=== PATIENT | female | born 1980 | race Caucasian/White ===

== ENCOUNTER → 2016-08-02 | Outpatient (CLI) | payer BC ==
[~2016-08-02] MED LIST: ADVI200C5 PO; CELE20TA PO; COLA100C3 PO; PERC5TAB6 PO; PRENTAB7 PO; TRAZ50TA4 PO
== END ==
LOC: M OUTALCOH 13:30
PROVIDERS: ATTEND Psychiatry & Neurology Psychiatry
DX: Z13.9 Encounter for screening, unspecified (principal); F10.20 Alcohol dependence, uncomplicated

== ENCOUNTER 2016-08-14 11:20 | Outpatient (RCR) | payer BC | END 2016-09-03 | LOC: M OUTALCOH 11:20 | PROVIDERS: ATTEND Psychiatry & Neurology Psychiatry | DX: F10.20 Alcohol dependence, uncomplicated (principal); F17.200 Nicotine dependence, unspecified, uncomplicated ==

== ENCOUNTER → 2016-09-18 | Outpatient (CLI) | payer BC | LOC: M OUTALCOH 12:19 | PROVIDERS: ATTEND Psychiatry & Neurology Psychiatry | DX: F10.20 Alcohol dependence, uncomplicated (principal) ==

== ENCOUNTER 2016-09-28 13:00 | Outpatient (RCR) | payer BC | END 2016-10-04 | LOC: M OUTALCOH 13:00 | PROVIDERS: ATTEND Psychiatry & Neurology Psychiatry | DX: F10.20 Alcohol dependence, uncomplicated (principal); F17.200 Nicotine dependence, unspecified, uncomplicated ==

== ENCOUNTER 2016-11-02 10:00 | Outpatient (RCR) | payer BC ==
[~2016-11-02 10:00] MED LIST changes: -COLA100C3 PO; +COLA100C5 PO; +PERC5TAB12 PO; -PERC5TAB6 PO; +TRAZ50TA11 PO; -TRAZ50TA4 PO
== END 2016-11-03 ==
LOC: M OUTALCOH 10:00
PROVIDERS: ATTEND Psychiatry & Neurology Psychiatry
DX: F10.20 Alcohol dependence, uncomplicated (principal); F17.200 Nicotine dependence, unspecified, uncomplicated

== ENCOUNTER → 2016-11-06 | Outpatient (REF) | payer BC ==
[~2016-11-06] MED LIST changes: +RALT40TA PO; +TRUVTAB PO
[2016-11-06 12:00] LABS: BASO % 0.5 % (0.0-1.0); EOS # 0.3 K/mm3 (0.0-0.50); EOS % 3.7 % (0.0-3.0); LARGE UNSTAINED CELL # 0.1 K/mm3 (0.0-0.4); LARGE UNSTAINED CELL % 1.7 % (0.0-4.0); LYMPH # 2.2 K/mm3 (1.5-4.5); LYMPH % 30.1 % (24.0-44.0); MEAN CORPUSCULAR HEMOGLOBIN 29.4 pg (27.0-33.0); MEAN CORPUSCULAR HGB CONC 33.1 g/dl (32.0-36.5); MEAN CORPUSCULAR VOLUME 88.7 fl (80.0-96.0); MONO # 0.5 K/mm3 (0.0-0.8); MONO % 7.3 % (0.0-5.0); NEUTROPHILS % 56.7 % (36.0-66.0); PLATELET COUNT, AUTOMATED 271 k/mm3 (150-450); RED CELL DISTRIBUTION WIDTH 12.9 % (11.5-14.5)
[2016-11-06 12:36] LABS: ALBUMIN 3.8 GM/DL (3.2-5.2); ALBUMIN/GLOBULIN RATIO 1.06 (1.00-1.93); ALKALINE PHOSPHATASE 54 U/L (45-117); ALT/SGPT 22 U/L (12-78); ANION GAP 8 MEQ/L (8-16); AST/SGOT 11 U/L (15-37); BILIRUBIN,TOTAL 0.5 MG/DL (0.2-1.0); BLOOD UREA NITROGEN 12 MG/DL (7-18); CALCIUM LEVEL 9.3 MG/DL (8.5-10.1); CARBON DIOXIDE LEVEL 23 MEQ/L (21-32); CHLORIDE LEVEL 109 MEQ/L (98-107); CHOLESTEROL LEVEL 212 MG/DL (<200); CREATININE FOR GFR 0.75 MG/DL (0.55-1.02); GLOMERULAR FILTRATION RATE > 60.0 (>60); GLUCOSE, FASTING 100 MG/DL (70-105); POTASSIUM SERUM 4.6 MEQ/L (3.5-5.1); SODIUM LEVEL 140 MEQ/L (136-145); TOTAL PROTEIN 7.4 GM/DL (6.4-8.2); TRIGLYCERIDES LEVEL 218 MG/DL (<150)
== END ==
LOC: M SFHCPLAZ 11:21
PROVIDERS: ATTEND Nurse Practitioner Family
DX: F41.9 Anxiety disorder, unspecified (principal); E55.9 Vitamin D deficiency, unspecified; E78.1 Pure hyperglyceridemia

== ENCOUNTER 2016-11-27 14:33 | Emergency (ER) | payer OTHER, BC ==
[~2016-11-27] VITALS: Ht 160 cm; Wt 111.7 kg
[~2016-11-27 14:33] MED LIST changes: -RALT40TA PO; -TRUVTAB PO
[2016-11-27] MEDS ORDERED: EXPOSURE KIT-ADULT 7 DAY SUPPLY PO ONE ×2 (15:30)
[2016-11-27 16:08] LABS: BASO # 0.1 K/mm3 (0.0-0.2); BASO % 0.6 % (0.0-1.0); EOS # 0.4 K/mm3 (0.0-0.50); EOS % 4.3 % (0.0-3.0); LARGE UNSTAINED CELL # 0.1 K/mm3 (0.0-0.4); LARGE UNSTAINED CELL % 1.6 % (0.0-4.0); LYMPH # 2.9 K/mm3 (1.5-4.5); LYMPH % 30.6 % (24.0-44.0); MEAN CORPUSCULAR HEMOGLOBIN 29.4 pg (27.0-33.0); MEAN CORPUSCULAR HGB CONC 33.8 g/dl (32.0-36.5); MEAN CORPUSCULAR VOLUME 86.9 fl (80.0-96.0); MONO # 0.5 K/mm3 (0.0-0.8); MONO % 5.6 % (0.0-5.0); NEUTROPHILS # 5.2 K/mm3 (1.8-7.7); NEUTROPHILS % 57.3 % (36.0-66.0); PLATELET COUNT, AUTOMATED 289 k/mm3 (150-450)
[2016-11-27 16:13] LABS: CONTROL LINE HCG INT CTR LINE PRESENT
[2016-11-27 16:21] LABS: ALBUMIN 3.7 GM/DL (3.2-5.2); ALKALINE PHOSPHATASE 54 U/L (45-117); ALT/SGPT 27 U/L (12-78); ANION GAP 10 MEQ/L (8-16); AST/SGOT 18 U/L (15-37); BILIRUBIN,TOTAL 0.3 MG/DL (0.2-1.0); BLOOD UREA NITROGEN 13 MG/DL (7-18); CALCIUM LEVEL 9.2 MG/DL (8.5-10.1); CARBON DIOXIDE LEVEL 23 MEQ/L (21-32); CHLORIDE LEVEL 104 MEQ/L (98-107); CREATININE FOR GFR 0.76 MG/DL (0.55-1.02); GLOMERULAR FILTRATION RATE > 60.0 (>60); GLUCOSE, FASTING 85 MG/DL (70-105); HEPATITIS B SURFACE ANTIBODY POSITIVE (POSITIVE); POTASSIUM SERUM 4.1 MEQ/L (3.5-5.1); SODIUM LEVEL 137 MEQ/L (136-145); TOTAL PROTEIN 7.4 GM/DL (6.4-8.2)
[2016-11-27] MEDS ORDERED: TRUVTAB PO (16:48)
[2016-11-27] MEDS ORDERED: RALT40TA PO (16:48)
[2016-11-27 17:02] VITALS: BP 141/82
== END 2016-11-27 17:09 | disposition home or self-care (01) ==
LOC: M ED 14:33
DX: S81.031A Puncture wound without foreign body, right knee, initial encounter (principal); W46.1XXA Contact with contaminated hypodermic needle, initial encounter; Y92.531 Health care provider office as the place of occurrence of the external cause; Y93.F9 Activity, other caregiving; Y99.0 Civilian activity done for income or pay; F17.210 Nicotine dependence, cigarettes, uncomplicated; Z79.899 Other long term (current) drug therapy

== ENCOUNTER → 2016-12-01 | Outpatient (REF) | payer BC ==
[~2016-12-01] MED LIST changes: +RALT40TA PO; +TRUVTAB PO
== END ==
LOC: M LABDRAWP 12:28
PROVIDERS: ATTEND Family Medicine
DX: L57.0 Actinic keratosis (principal); D23.5 Other benign neoplasm of skin of trunk

== ENCOUNTER → 2016-12-04 | Outpatient (RCR) | payer BC | LOC: M OUTALCOH 11-08 13:00 | PROVIDERS: ATTEND Psychiatry & Neurology Psychiatry | DX: F10.20 Alcohol dependence, uncomplicated (principal); F17.200 Nicotine dependence, unspecified, uncomplicated ==

== ENCOUNTER 2017-01-01 16:00 | Outpatient (RCR) | payer BC | END 2017-01-04 | LOC: M OUTALCOH 16:00 | PROVIDERS: ATTEND Psychiatry & Neurology Psychiatry | DX: F10.20 Alcohol dependence, uncomplicated (principal); F17.200 Nicotine dependence, unspecified, uncomplicated ==

== ENCOUNTER → 2017-04-11 | Outpatient (REF) | payer BC ==
[2017-04-11 12:20] LABS: ALBUMIN 3.6 GM/DL (3.2-5.2); ALBUMIN/GLOBULIN RATIO 0.95 (1.00-1.93); ALKALINE PHOSPHATASE 55 U/L (45-117); ALT/SGPT 30 U/L (12-78); ANION GAP 8 MEQ/L (8-16); AST/SGOT 17 U/L (7-37); BILIRUBIN,TOTAL 0.3 MG/DL (0.2-1.0); BLOOD UREA NITROGEN 13 MG/DL (7-18); CARBON DIOXIDE LEVEL 26 MEQ/L (21-32); CHLORIDE LEVEL 106 MEQ/L (98-107); CREATININE FOR GFR 0.72 MG/DL (0.55-1.02); GLOMERULAR FILTRATION RATE > 60.0 (>60); GLUCOSE, FASTING 105 MG/DL (70-105); POTASSIUM SERUM 4.5 MEQ/L (3.5-5.1); SODIUM LEVEL 140 MEQ/L (136-145); TOTAL PROTEIN 7.4 GM/DL (6.4-8.2)
== END ==
LOC: M SFHCPLAZ 10:09
PROVIDERS: ATTEND Family Medicine
DX: E66.01 Morbid (severe) obesity due to excess calories (principal)

== ENCOUNTER → 2017-06-13 | Outpatient (REF) | payer BC | LOC: M SFHCPLAZ 11:35 | DX: B34.9 Viral infection, unspecified (principal) | CPT/HCPCS: 87633 ==

== ENCOUNTER → 2017-07-11 | Outpatient (REF) | payer BC ==
[2017-07-11 13:40] LABS: HEPATITIS B SURFACE ANTIGEN NEGATIVE (NEGATIVE)
[2017-07-11 14:09] LABS: HEPATITIS C VIRUS ABY INDEX 0.1 INDEX (<0.8)
[2017-07-11 14:09] LABS: HIV 1&2 SCREEN CENTAUR NEGATIVE (NEGATIVE)
[2017-07-11 19:40] LABS: CHLAMYDIA DNA AMPLIFICATION NEGATIVE (NEGATIVE); GC DNA AMPLIFICATION NEGATIVE (NEGATIVE)
[2017-07-13 14:24] LABS: HEPATITIS B CORE ANTIBODY IGM NEGATIVE (NEGATIVE)
[2017-07-13 14:27] LABS: HEPATITIS A ANTIBODY IGM NEGATIVE (NEGATIVE)
[2017-07-17 00:06] LABS: HPV HYBRID CAPTURE II Negative (Negative)
== END ==
LOC: M LABDRAWP 12:00
DX: Z11.3 Encounter for screening for infections with a predominantly sexual mode of transmission (principal); Z12.4 Encounter for screening for malignant neoplasm of cervix
CPT/HCPCS: 87340

== ENCOUNTER → 2017-08-23 | Outpatient (CLI) | payer BC | LOC: M RAD 07:13 | DX: R10.11 Right upper quadrant pain (principal) | CPT/HCPCS: 76705 ==

== ENCOUNTER 2018-02-04 09:27 | Emergency (ER) | payer SELFPAY, BC ==
[2018-02-04 10:00] LABS: KETONE, URINE AUTO RFX NEGATIVE (NEGATIVE); LEUKOCYTE ESTERASE UR AUTO RFX NEGATIVE (NEGATIVE); MUCUS, URINE RFX SMALL (NEGATIVE); NITRITE, URINE AUTO RFX NEGATIVE (NEGATIVE); RBC, URINE AUTO RFX 3 /HPF (0-3); SPECIFIC GRAVITY UR AUTO RFX 1.012 (1.002-1.035); SQUAM EPITHELIAL CELL UR AURFX 0 /HPF (0-6); WBC, URINE AUTO RFX 0 /HPF (0-3)
[2018-02-04 10:11] LABS: CONTROL LINE UCG INT CTR LINE PRESENT; URINE PREG TEST NEGATIVE (NEGATIVE)
[2018-02-04] MEDS: NS 1,000 ML IV (10:28)
[2018-02-04 10:29] LABS: BASO % 0.7 % (0.0-1.0); EOS # 0.3 10^3/uL (0.0-0.50); EOS % 5.6 % (0.0-3.0); HEMATOCRIT 38.4 % (36.0-47.0); HEMOGLOBIN 12.8 g/dl (12.0-15.5); IMMATURE GRANULOCYTE % 0.3 % (0-3.0); LYMPH # 1.9 10^3/uL (1.5-4.5); LYMPH % 30.8 % (24.0-44.0); MEAN CORPUSCULAR HEMOGLOBIN 28.7 pg (27.0-33.0); MEAN CORPUSCULAR HGB CONC 33.3 g/dl (32.0-36.5); MEAN CORPUSCULAR VOLUME 86.1 fl (80.0-96.0); MONO # 0.6 10^3/uL (0.0-0.8); MONO % 9.3 % (0.0-5.0); NEUTROPHILS # 3.3 10^3/uL (1.8-7.7); NEUTROPHILS % 53.3 % (36.0-66.0); PLATELET COUNT, AUTOMATED 269 10^3/uL (150-450); RED BLOOD COUNT 4.46 10^6/uL (4.00-5.40); RED CELL DISTRIBUTION WIDTH 12.7 % (11.5-14.5); WHITE BLOOD COUNT 6.1 10^3/uL (4.0-10.0)
[2018-02-04 10:39] LABS: INR 0.92; PROTHROMBIN TIME 12.5 SECONDS (12.1-14.4)
[2018-02-04 10:40] LABS: PARTIAL THROMBOPLASTIN TIME 28.6 SECONDS (25.4-37.6)
[2018-02-04 10:50] LABS: D-DIMER QUANT < 270.0 ng/ml (<500)
[2018-02-04 11:07] LABS: ALBUMIN 3.7 GM/DL (3.2-5.2); ALBUMIN/GLOBULIN RATIO 1.03 (1.00-1.93); ALKALINE PHOSPHATASE 57 U/L (45-117); ALT/SGPT 57 U/L (12-78); ANION GAP 7 MEQ/L (8-16); AST/SGOT 28 U/L (7-37); BILIRUBIN,DIRECT < 0.1 MG/DL (0.0-0.2); BILIRUBIN,TOTAL 0.3 MG/DL (0.2-1.0); BLOOD UREA NITROGEN 13 MG/DL (7-18); CALCIUM LEVEL 9.3 MG/DL (8.5-10.1); CARBON DIOXIDE LEVEL 25 MEQ/L (21-32); CHLORIDE LEVEL 107 MEQ/L (98-107); CREATININE FOR GFR 0.76 MG/DL (0.55-1.30); FREE T4 0.71 NG/DL (0.76-1.46); GLOMERULAR FILTRATION RATE > 60.0 (>60); GLUCOSE, FASTING 124 MG/DL (70-100); LIPASE 145 U/L (73-393); NT-PRO BNP 10 PG/ML (<125); POTASSIUM SERUM 4.1 MEQ/L (3.5-5.1); SODIUM LEVEL 139 MEQ/L (136-145); TOTAL PROTEIN 7.3 GM/DL (6.4-8.2)
[2018-02-04] MEDS: diphenhydrAMINE INJ 50MG/ML VIAL (J1200) IV (11:24)
[2018-02-04] MEDS: METOCLOPRAMIDE INJ 10MG/2ML VIAL (J2765) IV (11:24)
[2018-02-04] MEDS: KETOROLAC 30 MG/ML VIAL (J1885) IV (11:28)
== END 2018-02-04 12:15 | disposition home or self-care (01) ==
LOC: M ED 09:27
DX: R51 Headache (principal); F41.9 Anxiety disorder, unspecified; F32.9 Major depressive disorder, single episode, unspecified; Z79.899 Other long term (current) drug therapy
CPT/HCPCS: J1200

== ENCOUNTER 2018-06-13 12:56 | Emergency (ER) | payer OTHER, SELFPAY ==
[~2018-06-13] VITALS: Ht 160 cm; Wt 111.4 kg
[~2018-06-13 12:56] MED LIST changes: +CYMB60CA3 PO; +TRAZ-160 PO; -TRAZ50TA11 PO; +VITA2000 PO; +VITA50005 PO
[2018-06-13] MEDS ORDERED: NAPR-885 (13:03)
[2018-06-13] MEDS ORDERED: CHLO125TA (13:03)
[2018-06-13] MEDS ORDERED: ESCI10TA2 (13:03)
[2018-06-13] MEDS ORDERED: METO1TAB7 (13:03)
[2018-06-13] MEDS ORDERED: NEOSPORIN OINT 0.9 GM PKT (FLOOR STOCK) TOP ONE (14:45)
[2018-06-13] MEDS ORDERED: AUGM875T28 PO (15:12)
[2018-06-13 15:15] VITALS: BP 130/68
== END 2018-06-13 15:16 | disposition home or self-care (01) ==
LOC: M ED 12:56
DX: S61.451A Open bite of right hand, initial encounter (principal); W54.0XXA Bitten by dog, initial encounter; Y92.512 Supermarket, store or market as the place of occurrence of the external cause; Y93.9 Activity, unspecified; Y99.0 Civilian activity done for income or pay; G43.909 Migraine, unspecified, not intractable, without status migrainosus; F41.9 Anxiety disorder, unspecified; F32.9 Major depressive disorder, single episode, unspecified; Z79.899 Other long term (current) drug therapy

== ENCOUNTER → 2019-05-29 | Outpatient (CLI) | payer OTHER ==
[~2019-05-29] MED LIST changes: +AUGM875T28 PO; +CHLO125TA; +ESCI10TA2; +METO1TAB7; +NAPR-885; -TRAZ-160 PO; +TRAZ-252 PO
--- NOTE | 2019-05-30 02:41 | REPPI ---
Clinical: Trauma. Technique: AP, lateral, bilateral oblique views of the left foot. Findings: Osseous structures, joint spaces, and surrounding soft tissues are essentially age-appropriate. No evidence for acute or obvious healed injury. No subcutaneous emphysema or foreign body. Impression: Age-appropriate examination. No obvious fracture or dislocation. Electronically Signed by Cassius Vidales MD 05/30/2019 02:33 A
== END ==
LOC: M PLAIMG 14:01
PROVIDERS: ATTEND Physician Assistant
DX: S99.922A Unspecified injury of left foot, initial encounter (principal); W18.30XA Fall on same level, unspecified, initial encounter; Y92.9 Unspecified place or not applicable

== ENCOUNTER → 2019-06-01 | Outpatient (CLI) | payer OTHER ==
[2019-06-01 12:36] LABS: HEMATOCRIT 37.8 % (36.0-47.0); HEMOGLOBIN 12.5 g/dl (12.0-15.5); MEAN CORPUSCULAR HGB CONC 33.1 g/dl (32.0-36.5); MEAN CORPUSCULAR VOLUME 87.7 fl (80.0-96.0); PLATELET COUNT, AUTOMATED 279 10^3/uL (150-450); RED BLOOD COUNT 4.31 10^6/uL (4.00-5.40); WHITE BLOOD COUNT 8.1 10^3/uL (4.0-10.0)
[2019-06-01 13:05] LABS: ALBUMIN 3.8 GM/DL (3.2-5.2); ALT/SGPT 31 U/L (12-78); BILIRUBIN,TOTAL 0.4 MG/DL (0.2-1.0); BLOOD UREA NITROGEN 13 MG/DL (7-18); CALCIUM LEVEL 9.1 MG/DL (8.5-10.1); CARBON DIOXIDE LEVEL 24 MEQ/L (21-32); CHLORIDE LEVEL 108 MEQ/L (98-107); CHOLESTEROL LEVEL 225 MG/DL (<200); CREATININE FOR GFR 0.75 MG/DL (0.55-1.30); FREE T4 0.84 NG/DL (0.76-1.46); GLOMERULAR FILTRATION RATE > 60.0 (>60); GLUCOSE, FASTING 87 MG/DL (70-100); HDL CHOLESTEROL 45 MG/DL (>40); LDL CHOLESTEROL 142 MG/DL (<100); NON-HDL-C 180 MG/DL; POTASSIUM SERUM 4.4 MEQ/L (3.5-5.1); SODIUM LEVEL 138 MEQ/L (136-145); TOTAL PROTEIN 7.4 GM/DL (6.4-8.2); TRIGLYCERIDES LEVEL 188 MG/DL (<150)
[2019-06-01 13:21] LABS: HEMOGLOBIN A1c 5.5 %
[2019-06-02 10:46] LABS: TOTAL 25(OH) VITAMIN D 32.8 NG/ML (30.0-100.0)
== END ==
LOC: M LAB 12:00
PROVIDERS: ATTEND Physician Assistant
DX: E55.9 Vitamin D deficiency, unspecified (principal)

== ENCOUNTER → 2019-12-18 | Outpatient (REF) | payer OTHER | LOC: M SFHCPLAZ 11:57 | PROVIDERS: ATTEND Physician Assistant | DX: J02.9 Acute pharyngitis, unspecified (principal) ==

== ENCOUNTER → 2020-01-27 | Outpatient (REF) | payer OTHER | LOC: M SFHCWAGY 18:07 | PROVIDERS: ATTEND Nurse Practitioner Women's Health | DX: Z12.4 Encounter for screening for malignant neoplasm of cervix (principal) | CPT/HCPCS: 87624; G0123 ==

== ENCOUNTER → 2020-05-20 | Outpatient (REF) | payer OTHER ==
[~2020-05-20] MED LIST changes: +ESCI10TA16; -ESCI10TA2
[2020-05-20 14:11] LABS: ALBUMIN 3.8 GM/DL (3.2-5.2); ALT/SGPT 44 U/L (12-78); BILIRUBIN,TOTAL 0.5 MG/DL (0.2-1.0); BLOOD UREA NITROGEN 10 MG/DL (7-18); CALCIUM LEVEL 9.2 MG/DL (8.5-10.1); CARBON DIOXIDE LEVEL 28 MEQ/L (21-32); CHLORIDE LEVEL 105 MEQ/L (98-107); CHOLESTEROL LEVEL 223 MG/DL (<200); CHOLESTEROL RISK RATIO 4.847 (<5); CREATININE FOR GFR 0.76 MG/DL (0.55-1.30); GLOMERULAR FILTRATION RATE > 60.0 (>58); GLUCOSE, FASTING 125 MG/DL (70-100); HDL CHOLESTEROL 46 MG/DL (>40); LDL CHOLESTEROL 110 MG/DL (<100); NON-HDL-C 177 MG/DL; POTASSIUM SERUM 4.6 MEQ/L (3.5-5.1); SODIUM LEVEL 137 MEQ/L (136-145); TOTAL PROTEIN 7.5 GM/DL (6.4-8.2); TRIGLYCERIDES LEVEL 335 MG/DL (<150)
== END ==
LOC: M PLALAB 12:16
PROVIDERS: ATTEND Physician Assistant
DX: E78.1 Pure hyperglyceridemia (principal); E55.9 Vitamin D deficiency, unspecified

== ENCOUNTER 2021-03-11 12:47 | Emergency (ER) | payer OTHER ==
[~2021-03-11] VITALS: Ht 160 cm; Wt 103.6 kg
[~2021-03-11 12:47] MED LIST changes: -CYMB60CA3 PO; +CYMB60CA4 PO; +EMTR1TAB16 PO; -TRUVTAB PO
[2021-03-11 14:23] LABS: BASO % 0.5 % (0.0-1.0); EOS # 0.2 10^3/uL (0.0-0.5); EOS % 2.2 % (0.0-3.0); HEMOGLOBIN 14.2 g/dl (12.0-15.5); LYMPH # 2.2 10^3/uL (1.5-5.0); LYMPH % 26.1 % (24.0-44.0); MEAN CORPUSCULAR HEMOGLOBIN 29.9 pg (27.0-33.0); MEAN CORPUSCULAR VOLUME 90.5 fl (80.0-96.0); MONO # 0.7 10^3/uL (0.0-0.8); MONO % 8.9 % (2.0-8.0); NEUTROPHILS # 5.1 10^3/uL (1.5-8.5); NEUTROPHILS % 61.8 % (36.0-66.0); PLATELET COUNT, AUTOMATED 293 10^3/uL (150-450); RED BLOOD COUNT 4.75 10^6/uL (4.00-5.40); WHITE BLOOD COUNT 8.3 10^3/uL (4.0-10.0)
[2021-03-11 14:30] VITALS: BP 123/64
--- NOTE | 2021-03-11 14:35 | REP ---
INDICATION: CHEST PAIN. COMPARISON: 02/13/2018 latest prior TECHNIQUE: Portable FINDINGS: The technique utilized in obtaining the radiograph has magnified the cardiac silhouette and accentuated the interstitial markings. The superior mediastinal structures are midline. The cardiac silhouette is unremarkable in size, shape, and position. The diaphragmatic surfaces of the lungs are regular, and the costophrenic angles are clear. The pulmonary zambrano are clear. The imaged osseous structures are intact. IMPRESSION: There is no acute cardiopulmonary disease. <Electronically signed by Mango Armstrong > 03/11/21 0901
[2021-03-11 14:39] LABS: INR 0.9; PROTHROMBIN TIME 12.5 SECONDS (12.7-14.5)
[2021-03-11 14:40] LABS: PARTIAL THROMBOPLASTIN TIME 27.7 SECONDS (25.9-37.0)
[2021-03-11 14:59] LABS: ALBUMIN 3.8 GM/DL (3.2-5.2); ALT/SGPT 28 U/L (12-78); BILIRUBIN,DIRECT < 0.1 MG/DL (0.0-0.2); BILIRUBIN,TOTAL 0.4 MG/DL (0.2-1.0); BLOOD UREA NITROGEN 12 MG/DL (7-18); CALCIUM LEVEL 10.4 MG/DL (8.5-10.1); CARBON DIOXIDE LEVEL 23 MEQ/L (21-32); CHLORIDE LEVEL 109 MEQ/L (98-107); CREATININE FOR GFR 0.77 MG/DL (0.55-1.30); GLOMERULAR FILTRATION RATE > 60.0 (>58); GLUCOSE, FASTING 82 MG/DL (70-100); LIPASE 143 U/L (73-393); NT-PRO BNP 20 PG/ML (<125); POTASSIUM SERUM 4.3 MEQ/L (3.5-5.1); SODIUM LEVEL 140 MEQ/L (136-145); TOTAL PROTEIN 7.8 GM/DL (6.4-8.2)
--- NOTE | 2021-03-11 20:52 | ECGEPIP ---
[facility] - ED Test Date: 2021-03-11 Pat Name: MARY ANN BERNAL Department: Room: - Gender: Female [employer] Underwriter: NEIL : 1980 Requested By: OSCAR Garcia Order Number: [id number] Reading MD: Joanne Moore Measurements Intervals [place] Rate: 60 P: 25 [place]: 112 QRS: 14 QRSD: 88 T: 11 QT: 426 QTc: 426 Interpretive Statements Normal sinus rhythm NSTTW abnormalities decreased rate 02/04/18 Electronically Signed on 03-11-2021 20:52:16 EDT by Joanne Moore
== END 2021-03-11 15:24 | disposition left against medical advice (07) ==
LOC: M ED 12:47
DX: R07.89 Other chest pain (principal); R06.02 Shortness of breath; I10 Essential (primary) hypertension; F33.9 Major depressive disorder, recurrent, unspecified; E66.9 Obesity, unspecified; F41.9 Anxiety disorder, unspecified; Z79.899 Other long term (current) drug therapy; F17.210 Nicotine dependence, cigarettes, uncomplicated

== ENCOUNTER → 2021-05-25 | Outpatient (REF) | payer OTHER | LOC: M SFHCPLAZ 12:59 | PROVIDERS: ATTEND Physician Assistant | DX: R05.9 Cough, unspecified (principal) ==

== ENCOUNTER → 2021-08-08 | Outpatient (REF) | payer OTHER | LOC: M LAB REF 16:22 | PROVIDERS: ATTEND Physician Assistant | DX: R50.9 Fever, unspecified (principal) ==

== ENCOUNTER 2022-05-02 16:35 | Emergency (ER) | payer OTHER ==
[~2022-05-02] VITALS: Ht 160 cm; Wt 105.6 kg
[2022-05-02 21:59] VITALS: BP 180/94
== END 2022-05-02 22:11 | disposition home or self-care (01) ==
LOC: M ED 16:35
DX: J02.9 Acute pharyngitis, unspecified (principal); S92.515A Nondisplaced fracture of proximal phalanx of left lesser toe(s), initial encounter for closed fracture; W22.8XXA Striking against or struck by other objects, initial encounter; Y92.009 Unspecified place in unspecified non-institutional (private) residence as the place of occurrence of the external cause; F41.9 Anxiety disorder, unspecified; F32.A Depression, unspecified; Z79.899 Other long term (current) drug therapy

== ENCOUNTER → 2022-05-15 | Outpatient (REF) | payer OTHER | LOC: M PLALAB 15:02 | PROVIDERS: ATTEND Nurse Practitioner Family | DX: Z12.4 Encounter for screening for malignant neoplasm of cervix (principal) ==

== ENCOUNTER → 2022-07-19 | Outpatient (CLI) | payer OTHER ==
[2022-07-19 15:44] LABS: ALBUMIN 3.8 G/DL (3.2-5.2); ALKALINE PHOSPHATASE 57 U/L (46-116); ALT/SGPT 20 U/L (7.0-40); AST/SGOT 15 U/L (<34); BILIRUBIN,TOTAL 0.4 MG/DL (0.3-1.2); BLOOD UREA NITROGEN 10 MG/DL (9-23); CARBON DIOXIDE LEVEL 23 MMOL/L (20-31); CHLORIDE LEVEL 107 MMOL/L (98-107); CHOLESTEROL LEVEL 203 MG/DL (<200); CHOLESTEROL RISK RATIO 3.77 (<5); CREATININE FOR GFR 0.65 MG/DL (0.55-1.30); GLOMERULAR FILTRATION RATE > 60.0 (>58); GLUCOSE, FASTING 89 MG/DL (60-100); HDL CHOLESTEROL 53.8 MG/DL (>40); LDL CHOLESTEROL 132.2 MG/DL (<100); NON-HDL-C 149.2 MG/DL; POTASSIUM SERUM 4.2 MMOL/L (3.5-5.1); SODIUM LEVEL 137 MMOL/L (136-145); TOTAL 25(OH) VITAMIN D 33.2 NG/ML (20.0-100.0); TOTAL PROTEIN 7.1 G/DL (5.7-8.2); TRIGLYCERIDES LEVEL 85 MG/DL (<150)
== END ==
LOC: M PLALAB 13:30
PROVIDERS: ATTEND Nurse Practitioner Family
DX: E55.9 Vitamin D deficiency, unspecified (principal)

== ENCOUNTER → 2022-07-19 | Outpatient (CLI) | payer OTHER ==
[2022-07-19 15:55] LABS: HEPATITIS B SURFACE ANTIGEN NEGATIVE (NEGATIVE)
[2022-07-19 16:08] LABS: HIV 1&2 SCREEN CENTAUR NEGATIVE (NEGATIVE)
[2022-07-19 16:17] LABS: HEPATITIS B CORE ANTIBODY IGM NEGATIVE (NEGATIVE)
== END ==
LOC: M PLALAB 13:26
PROVIDERS: ATTEND Nurse Practitioner Family
DX: Z11.3 Encounter for screening for infections with a predominantly sexual mode of transmission (principal)

== ENCOUNTER 2022-11-06 09:54 | Emergency (ER) | payer BC, MEDICARE, OTHER, SELFPAY ==
[~2022-11-06] VITALS: Ht 160 cm; Wt 106.5 kg
[2022-11-06 09:55] VITALS: BP 175/94; TEMP 97.5; O2SAT 98
[2022-11-06] MEDS ORDERED: BOOSTRIX VACCINE (TETANUS/DIPHTH/ACEL. PERTUSSIS) 0.5ML SYR IM.IMMUN ONE (13:05)
[2022-11-06] MEDS ORDERED: BACITRACIN OINTMENT 30GM TUBE TOP PRN (13:05)
[2022-11-06] MEDS ORDERED: BACI500O8 TOP (13:25)
== END 2022-11-06 13:29 | disposition home or self-care (01) ==
LOC: M ED 09:54
DX: T21.22XA Burn of second degree of abdominal wall, initial encounter (principal); T21.12XA Burn of first degree of abdominal wall, initial encounter; T31.0 Burns involving less than 10% of body surface; X12.XXXA Contact with other hot fluids, initial encounter; Y92.009 Unspecified place in unspecified non-institutional (private) residence as the place of occurrence of the external cause; Y93.89 Activity, other specified; Y99.8 Other external cause status; F17.200 Nicotine dependence, unspecified, uncomplicated

== ENCOUNTER → 2023-04-09 | Outpatient (CLI) | payer OTHER ==
[~2023-04-09] MED LIST changes: +BACI500O8 TOP
[2023-04-09 16:04] LABS: BASO # 0.1 10^3/uL (0.0-0.2); BASO % 0.7 % (0.0-1.0); EOS # 0.2 10^3/uL (0.0-0.5); EOS % 2.3 % (0.0-3.0); HEMATOCRIT 38.2 % (36.0-47.0); HEMOGLOBIN 12.6 g/dl (12.0-15.5); LYMPH # 2.2 10^3/uL (1.5-5.0); LYMPH % 29.3 % (24.0-44.0); MEAN CORPUSCULAR HEMOGLOBIN 29.6 pg (27.0-33.0); MEAN CORPUSCULAR VOLUME 89.9 fl (80.0-96.0); MONO # 0.7 10^3/uL (0.0-0.8); MONO % 9.7 % (2.0-8.0); NEUTROPHILS # 4.3 10^3/uL (1.5-8.5); NEUTROPHILS % 57.7 % (36.0-66.0); PLATELET COUNT, AUTOMATED 290 10^3/uL (150-450); RED BLOOD COUNT 4.25 10^6/uL (4.00-5.40); WHITE BLOOD COUNT 7.4 10^3/uL (4.0-10.0)
[2023-04-09 16:07] LABS: HEMATOCRIT 37.9 % (36.0-47.0)
[2023-04-09 16:20] LABS: CREATININE, URINE 64.4 MG/DL; MALB URINE SIEMENS < 3.0 MG/L; MAU/CREAT RATIO 4.6 MCG/MG (0.0-30.0)
[2023-04-09 16:49] LABS: ALBUMIN 3.7 G/DL (3.2-5.2); ALKALINE PHOSPHATASE 57 U/L (46-116); ALT/SGPT 23 U/L (7.0-40); AST/SGOT 14 U/L (<34); BILIRUBIN,TOTAL 0.4 MG/DL (0.3-1.2); BLOOD UREA NITROGEN 15 MG/DL (9-23); CALCIUM LEVEL 9.3 MG/DL (8.5-10.1); CARBON DIOXIDE LEVEL 25 MMOL/L (20-31); CHLORIDE LEVEL 107 MMOL/L (98-107); CHOLESTEROL LEVEL 237 MG/DL (<200); CREATININE FOR GFR 0.75 MG/DL (0.55-1.30); GLOMERULAR FILTRATION RATE > 60.0 (>58); GLUCOSE, FASTING 86 MG/DL (60-100); HDL CHOLESTEROL 52.6 MG/DL (>40); LDL CHOLESTEROL 109.8 MG/DL (<100); NON-HDL-C 184.4 MG/DL; POTASSIUM SERUM 4.3 MMOL/L (3.5-5.1); SODIUM LEVEL 137 MMOL/L (136-145); TOTAL 25(OH) VITAMIN D 25.4 NG/ML (20.0-100.0); TOTAL PROTEIN 6.9 G/DL (5.7-8.2); TRIGLYCERIDES LEVEL 373 MG/DL (<150); VITAMIN B12 LEVEL 377 PG/ML (211-911)
== END ==
LOC: M PLALAB 13:44
PROVIDERS: ATTEND Student in an Organized Health Care Education/Training Program
DX: M79.18 Myalgia, other site (principal); I10 Essential (primary) hypertension; E55.9 Vitamin D deficiency, unspecified; E78.1 Pure hyperglyceridemia; F10.20 Alcohol dependence, uncomplicated

== ENCOUNTER → 2023-09-19 | Outpatient (REF) | payer OTHER | LOC: M SFHCWAGY 10:30 | PROVIDERS: ATTEND Nurse Practitioner Family | DX: Z12.4 Encounter for screening for malignant neoplasm of cervix (principal) ==

== ENCOUNTER → 2023-09-19 | Outpatient (CLI) | payer OTHER | LOC: M WHC 14:51 | PROVIDERS: ATTEND Nurse Practitioner Family | DX: Z12.31 Encounter for screening mammogram for malignant neoplasm of breast (principal) ==

== ENCOUNTER → 2023-12-13 | Outpatient (REF) | payer OTHER ==
[2023-12-14 14:07] LABS: Trichomonas vaginalis (AMP) NOT DETECTED (NEGATIVE)
[2023-12-14 14:31] LABS: GC DNA AMPLIFICATION NEGATIVE (NEGATIVE)
== END ==
LOC: M SFHCWAGY 12:40
PROVIDERS: ATTEND Nurse Practitioner Family
DX: N89.8 Other specified noninflammatory disorders of vagina (principal); Z11.3 Encounter for screening for infections with a predominantly sexual mode of transmission

== ENCOUNTER → 2023-12-28 | Outpatient (CLI) | payer OTHER ==
[2023-12-28 15:25] LABS: HEMATOCRIT 38.9 % (36.0-47.0)
[2023-12-28 15:27] LABS: BASO % 0.5 % (0.0-1.0); EOS # 0.2 10^3/uL (0.0-0.5); EOS % 1.9 % (0.0-3.0); HEMATOCRIT 39.3 % (36.0-47.0); HEMOGLOBIN 12.5 g/dl (12.0-15.5); LYMPH # 2.7 10^3/uL (1.5-5.0); LYMPH % 31.1 % (24.0-44.0); MEAN CORPUSCULAR HEMOGLOBIN 28.9 pg (27.0-33.0); MEAN CORPUSCULAR HGB CONC 31.8 g/dl (32.0-36.5); MEAN CORPUSCULAR VOLUME 90.8 fl (80.0-96.0); MONO # 0.8 10^3/uL (0.0-0.8); MONO % 9.5 % (2.0-8.0); NEUTROPHILS # 4.9 10^3/uL (1.5-8.5); NEUTROPHILS % 56.9 % (36.0-66.0); PLATELET COUNT, AUTOMATED 298 10^3/uL (150-450); RED BLOOD COUNT 4.33 10^6/uL (4.00-5.40); WHITE BLOOD COUNT 8.6 10^3/uL (4.0-10.0)
[2023-12-28 15:54] LABS: ALBUMIN 3.8 G/DL (3.2-5.2); ALKALINE PHOSPHATASE 64 U/L (46-116); ALT/SGPT 23 U/L (7.0-40); AST/SGOT 18 U/L (<34); BILIRUBIN,TOTAL 0.8 MG/DL (0.3-1.2); BLOOD UREA NITROGEN 9 MG/DL (9-23); CALCIUM LEVEL 9.3 MG/DL (8.5-10.1); CARBON DIOXIDE LEVEL 25 MMOL/L (20-31); CHLORIDE LEVEL 109 MMOL/L (98-107); CHOLESTEROL LEVEL 223 MG/DL (<200); CHOLESTEROL RISK RATIO 4.15 (<5); CREATININE FOR GFR 0.78 MG/DL (0.55-1.30); GLOMERULAR FILTRATION RATE > 60.0 (>58); GLUCOSE, FASTING 88 MG/DL (60-100); HDL CHOLESTEROL 53.7 MG/DL (>40); LDL CHOLESTEROL 141.3 MG/DL (<100); NON-HDL-C 169.3 MG/DL; POTASSIUM SERUM 4.4 MMOL/L (3.5-5.1); SODIUM LEVEL 138 MMOL/L (136-145); TOTAL PROTEIN 7.2 G/DL (5.7-8.2); TRIGLYCERIDES LEVEL 140 MG/DL (<150)
[2023-12-28 15:59] LABS: VITAMIN B12 LEVEL 359 PG/ML (211-911)
[2023-12-28 16:29] LABS: HEMOGLOBIN A1c 5.1 % (4.0-6.0)
[2023-12-31 11:10] LABS: VITAMIN D 1,25 DIHYDROXY 46.8 pg/mL (24.8-81.5)
== END ==
LOC: M PLALAB 12:17
PROVIDERS: ATTEND Student in an Organized Health Care Education/Training Program
DX: E78.1 Pure hyperglyceridemia (principal)

== ENCOUNTER → 2024-01-08 | Outpatient (REF) | payer OTHER | LOC: M SFHCPLAZ 17:03 | PROVIDERS: ATTEND Student in an Organized Health Care Education/Training Program | DX: E55.9 Vitamin D deficiency, unspecified (principal); E78.1 Pure hyperglyceridemia; I10 Essential (primary) hypertension; E66.01 Morbid (severe) obesity due to excess calories; F10.21 Alcohol dependence, in remission ==

== ENCOUNTER → 2024-03-18 | Outpatient (REF) | payer OTHER ==
[2024-03-18 18:37] LABS: Trichomonas vaginalis (AMP) POSITIVE (NEGATIVE)
[2024-03-18 19:17] LABS: GC DNA AMPLIFICATION NEGATIVE (NEGATIVE)
== END ==
LOC: M SFHCWAGY 16:56
PROVIDERS: ATTEND Nurse Practitioner Family
DX: Z11.3 Encounter for screening for infections with a predominantly sexual mode of transmission (principal)

== ENCOUNTER → 2024-04-22 | Outpatient (REF) | payer OTHER | LOC: M SFHCWAGY 17:06 | PROVIDERS: ATTEND Nurse Practitioner Family | DX: Z12.4 Encounter for screening for malignant neoplasm of cervix (principal); N73.9 Female pelvic inflammatory disease, unspecified; R87.615 Unsatisfactory cytologic smear of cervix ==

== ENCOUNTER → 2024-12-11 | Outpatient (CLI) | payer OTHER | LOC: M WHC 15:14 | PROVIDERS: ATTEND Nurse Practitioner Family | DX: Z12.31 Encounter for screening mammogram for malignant neoplasm of breast (principal); R92.313 Mammographic fatty tissue density, bilateral breasts ==

== ENCOUNTER → 2024-12-11 | Outpatient (REF) | payer OTHER ==
[2024-12-11 18:24] LABS: Trichomonas vaginalis (AMP) NOT DETECTED (NEGATIVE)
[2024-12-11 18:48] LABS: GC DNA AMPLIFICATION NEGATIVE (NEGATIVE)
== END ==
LOC: M SFHCWAGY 16:39
PROVIDERS: ATTEND Nurse Practitioner Family
DX: Z11.3 Encounter for screening for infections with a predominantly sexual mode of transmission (principal)

== ENCOUNTER → 2025-03-05 | Outpatient (REF) | payer OTHER ==
[2025-03-05 18:24] LABS: APPEARANCE, URINE CLEAR (CLEAR); BACTERIA, URINE AUTO NEGATIVE (NEGATIVE); BILIRUBIN, URINE AUTO NEGATIVE (NEGATIVE); BLOOD, URINE BLOOD NEGATIVE (NEGATIVE); GLUCOSE, URINE (UA) AUTO NEGATIVE (NEGATIVE); KETONE, URINE AUTO NEGATIVE (NEGATIVE); LEUKOCYTE ESTERASE, URINE AUTO TRACE (NEGATIVE); NITRITE, URINE AUTO NEGATIVE (NEGATIVE); PROTEIN, URINE AUTO NEGATIVE (NEGATIVE); RBC, URINE AUTO 1 /HPF (0-3); SPECIFIC GRAVITY URINE AUTO 1.003 (1.002-1.035); SQUAMOUS EPITHELIAL CELL UR AU 0 /HPF (0-6); UROBILINOGEN, URINE AUTO 0.2 mg/dL (0.0-2.0); WBC, URINE AUTO 1 /HPF (0-3)
[2025-03-05 19:21] LABS: Trichomonas vaginalis (AMP) POSITIVE (NEGATIVE)
[2025-03-05 19:56] LABS: GC DNA AMPLIFICATION NEGATIVE (NEGATIVE)
== END ==
LOC: M LAB REF 17:02
PROVIDERS: ATTEND Physician Assistant
DX: N39.0 Urinary tract infection, site not specified (principal); Z20.09 Contact with and (suspected) exposure to other intestinal infectious diseases